=== PATIENT | female | born 1975 | race Caucasian/White ===

== ENCOUNTER 2023-08-19 14:39 | Outpatient (CLI) | payer BC, SELFPAY ==
--- NOTE | 2023-08-19 14:48 | ECHO_ITS ---
Patient Info Name: Chaparro Hall Age: 48 years : 1975 Gender: Female Ht: 62 in Wt: 160 lbs BSA: 1.81 m2 HR: 77 bpm BP: 168 / 100 mmHg Heart Rhythm: Sinus Rhythm Technical Quality: Good Exam Date: 08/19/2023 2:50 PM Exam Location: Echo Lab Patient Status: Outpatient Admit Date: 08/19/2023 Staff Ordering Physician: Edmar Krishnan PA-C Deflector Operator: Darwin Pritchard RDCS Attending Provider: Edmar Krishnan PA-C Referring Physician: Eulogio GODFREY; Exam Type: CA echo doppler color flow Study Info Indications - murmur Complete two-dimensional, color flow and Doppler transthoracic echocardiogram is performed. Summary 1. Complete two-dimensional, color flow and Doppler transthoracic echocardiogram is performed. 2. Normal left ventricular size with mild concentric hypertrophy. Good systolic function of all segments with ejection fraction 60-65%. Normal diastolic function. 3. Mildly sclerotic aortic valve. Valve leaflets not clearly identified, unknown if this is a bicuspid or tricuspid valve. Mild somewhat eccentric aortic insufficiency. 4. No evidence of elevated pulmonary pressure. 5. The aortic root size at the sinus of Valsalva is slightly enlarged at 3.3 cm. 6. Normal sinus rhythm. Left Ventricle Left ventricular chamber dimension is normal. Left ventricular systolic function is normal, estimated at 60-65%. There is mildly increased left ventricular wall thickness. Left ventricular septal wall motion is normal. The left ventricular diastolic function is normal. Right Ventricle Right ventricular chamber dimension is normal. Right ventricular systolic function is normal. Left Atria Left atrial chamber dimension is normal. Right Atria Right atrial chamber dimension is normal. Aortic Valve The aortic valve is trileaflet. There is mild aortic valve sclerosis. There is no aortic valve stenosis. There is mild aortic valve regurgitation. Pulmonic Valve The pulmonic valve is normal. There is no pulmonic valve stenosis. There is no pulmonic regurgitation. Mitral Valve The mitral valve has normal leaflets. There is no mitral valve stenosis. There is trace mitral valve regurgitation. Tricuspid Valve The tricuspid valve leaflets are normal. There is no significant tricuspid valve stenosis. There is trace tricuspid valve regurgitation. No pulmonary hypertension, estimated pulmonary arterial systolic pressure is 29 mmHg. Pericardium/Pleural The pericardium appears normal. There is no pericardial effusion. Inferior Vena Cava Normal inferior vena cava with >50% collapse upon inspiration consistent with Empty right atrial pressure, 10 mmHg. Aorta The aortic root size at the sinus of Valsalva is slightly enlarged at 3.3 cm. The prox ascending aorta size is normal. Left Ventricular Outflow Tract Name Value Normal LVOT 2D LVOT Diameter 1.9 cm LVOT Doppler LVOT Peak Gradient 6 mmHg LVOT Mean Gradient 3 mmHg LVOT VTI 31 cm LVOT VTI/AV VTI Ratio 0.7 LVOT Stroke Volume 84 ml LVOT CO 4.6
== END 2023-08-19 14:40 | disposition home or self-care (01) ==
LOC: ANHCARD 14:40
PROVIDERS: PCP Family Medicine; Visit Provider Physician Assistant
DX: R93.1 Abnormal findings on diagnostic imaging of heart and coronary circulation (principal); I10 Essential (primary) hypertension; R01.1 Cardiac murmur, unspecified
CPT/HCPCS: 93306